=== PATIENT | male | born 1990 ===

== ENCOUNTER 2024-08-19 11:29 | Emergency (ER) | payer SELFPAY ==
[2024-08-19 13:30] LABS: APPEARANCE,URINE CLEAR; BILIRUBIN,URINE NEGATIVE (NEGATIVE); COLOR,URINE YELLOW; GLUCOSE,URINE NEGATIVE (NEGATIVE); KETONES,URINE NEGATIVE (NEGATIVE); LEUKOCYTE ESTERASE,URINE NEGATIVE (NEGATIVE); NITRITE,URINE NEGATIVE (NEGATIVE); OCCULT BLOOD,URINE NEGATIVE (NEGATIVE); PROTEIN,URINE TRACE mg/dL (NEGATIVE)
[2024-08-19 13:37] LABS: C. TRACHOMATIS BY PCR NOT DETECTED; N. GONORRHOEAE BY PCR NOT DETECTED
[2024-08-19 13:39] LABS: RBC,URINE 0-2 (0-2/HPF)
[2024-08-19 13:40] LABS: BACTERIA,URINE RARE (NEGATIVE); EPITHELIAL CELLS,URINE RARE (NONE-FEW); WBC,URINE 0-1 (0-5/HPF)
[2024-08-19] MEDS ORDERED: cefTRIAXone 1 GM Vial ONE (14:08)
[2024-08-19] MEDS ORDERED: Lidocaine 2% 5 ML SDV ONE (14:08)
[2024-08-19] MEDS ORDERED: Lidocaine 1% 5 ML VIAL ONE (14:11)
[2024-08-19] MEDS: Lidocaine 1% PF 2 ML SDV INJECT ONE (14:17)
[2024-08-19] MEDS: cefTRIAXone 1 GM Vial IM ONE (14:17)
== END 2024-08-19 14:18 | disposition home or self-care (01) ==
LOC: MW.ED 11:29
DX: R36.9 Urethral discharge, unspecified (principal)
CPT/HCPCS: 81001; 87491; 87591; 87651; 96372; 99283; J0696; J2003